=== PATIENT | female | born 1955 | race Caucasian/White ===

== ENCOUNTER 2017-07-17 02:11 | Emergency (ER) | payer MEDICAID ==
[~2017-07-17] VITALS: Ht 170.2 cm; Wt 49.7 kg
[2017-07-17 02:23] VITALS: BP 159/109
[2017-07-17] MEDS: ipratropium/albuterol 3ml nebule NEB ONE (03:15)
[2017-07-17] MEDS ORDERED: ALBU8HFA PO (03:29)
[2017-07-17] MEDS ORDERED: LEVO500T2 PO (03:29)
[2017-07-17] MEDS ORDERED: GUAI473S11 PO (03:29)
== END 2017-07-17 03:41 | disposition home or self-care (01) ==
LOC: ER 02:12
DX: J18.1 Lobar pneumonia, unspecified organism (principal); Z87.891 Personal history of nicotine dependence
CPT/HCPCS: 71045; 94640; 94760; 99283

== ENCOUNTER 2021-01-13 14:22 | Inpatient (IN) | payer MEDICAID ==
[~2021-01-13] VITALS: Ht 170.2 cm; Wt 56.8 kg
[2021-01-13] MEDS ORDERED: ondansetron/PF 4mg/2ml inj IV ONE (14:35)
[2021-01-13] MEDS ORDERED: vancomycin/NS 1 GM ADD-VANTAGE 250 ML IV ONE (14:35)
[2021-01-13] MEDS ORDERED: CefTRIAXone 2gm/D5W 50ml BAG 50 ML IV ONE (14:35)
[2021-01-13] MEDS ORDERED: normal saline 1000ML IV soln IV ONE (14:35)
[2021-01-13] MEDS ORDERED: morphine 4 MG/ML inj SYRINge IV ONE (14:35)
[2021-01-13 15:11] LABS: BASOPHILS # (AUTO) 0.2 X10'3 (0-0.2); BASOPHILS % (AUTO) 1.4 % (0-1); EOSINOPHILS % (AUTO) 0 % (0-6); HEMATOCRIT 41.6 % (35.0-45.0); HEMOGLOBIN 13.4 g/dl (12.0-16.0); LYMPHOCYTES # (AUTO) 0.2 X10'3 (1.1-4.8); LYMPHOCYTES % (AUTO) 1.3 % (21-51); MEAN CORPUSCULAR HEMOGLOBIN 23.8 PG (27.0-31.0); MEAN CORPUSCULAR HGB CONC 32.2 g/dL (33.0-36.5); MEAN CORPUSCULAR VOLUME 74.1 FL (78-98); MEAN PLATELET VOLUME 8.7 FL (7.4-10.4); MONOCYTES # (AUTO) 0.5 X10'3 (0-0.9); MONOCYTES % (AUTO) 3.1 % (2-12); NEUTROPHILS # (AUTO) 15.5 X10'3 (1.8-7.7); NEUTROPHILS % (AUTO) 94.2 % (42-75); PLATELET COUNT 178 X10'3 (140-440); RED BLOOD COUNT 5.62 X10'6 (4.20-5.60); WHITE BLOOD COUNT 16.5 X10'3 (4.5-11.0)
[2021-01-13 15:24] LABS: ALANINE AMINOTRANSFERASE 25 U/L (12-78); ALBUMIN 2.6 G/DL (3.4-5.0); ALBUMIN/GLOBULIN RATIO 0.6 (1.1-1.5); ALKALINE PHOSPHATASE 301 IU/L (46-116); ANION GAP 11 (8-16); ASPARTATE AMINO TRANSFERASE 45 U/L (10-37); BILIRUBIN,TOTAL 2.3 MG/DL (0.1-1.0); BLOOD UREA NITROGEN 27 MG/DL (7-18); BUN/CREATININE RATIO 24.8 (6.6-38.0); CALCIUM 8.4 MG/DL (8.5-10.1); CHLORIDE 99 MMOL/L (99-107); CREATININE 1.09 MG/DL (0.40-0.90); GLUCOSE 75 MG/DL (70-104); MAGNESIUM 1.8 MG/DL (1.5-2.4); SODIUM 139 MMOL/L (135-145); TOTAL CARBON DIOXIDE 29.3 MMOL/L (24-32); TOTAL PROTEIN 7.3 G/DL (6.4-8.2); eGFR 51 ML/MIN
[2021-01-13 15:33] LABS: URINE HCG NEGATIVE (NEG)
[2021-01-13 15:39] LABS: CLARITY,URINE CLOUDY (Clear); COLOR,URINE YELLOW (Yellow); GLUCOSE, URINE NEGATIVE (Neg); KETONES,URINE NEGATIVE (Neg); OCCULT BLOOD,URINE TRACE-INTACT (Neg); PROTEIN,URINE 100 mg/dl (Neg); UA COLLECTION TYPE NON-SPECIFIED
[2021-01-13 15:40] LABS: LEUKOCYTE ESTERASE ,URINE NEGATIVE (Neg); NITRITES, URINE NEGATIVE (Neg)
[2021-01-13 15:43] LABS: HYALINE CASTS 0-3 /LPF (NEGATIVE); MUCUS STRANDS FEW /LPF (Neg); SQUAMOUS EPITHELIAL CELL,UR FEW /LPF (FEW)
[2021-01-13 15:44] LABS: RBC,URINE 0-2 /HPF (0-2); WBC,URINE 0-4 /HPF (0-4)
[2021-01-13 15:45] LABS: AMORPHOUS URATES 2+; BACTERIA,URINE 1+ /HPF (Neg)
[2021-01-13] MEDS ORDERED: potassium Cl 20 mEq SR tablet PO STA (16:07)
[2021-01-13 16:18] LABS: ANISOCYTOSIS 3+; MICROCYTOSIS 1+; PLATELET ESTIMATE NORMAL
[2021-01-13 16:19] LABS: BURR CELLS 1+; SCHISTOCYTES FEW
[2021-01-13] MEDS ORDERED: FURO20TA4 PO (16:36)
[2021-01-13] MEDS ORDERED: POTA10TA PO (16:36)
[2021-01-13] MEDS ORDERED: LEVO50TA8 PO (16:36)
[2021-01-13] MEDS ORDERED: CARV12.545 PO (16:36)
[2021-01-13] MEDS ORDERED: OMEP-50 PO (16:36)
[2021-01-13] MEDS ORDERED: LISI-790 PO (16:36)
[2021-01-13] MEDS ORDERED: ondansetron/PF 4mg/2ml inj IV PRN (16:45)
[2021-01-13] MEDS ORDERED: potassium Cl 40MEQ/1/2NS 520ml 520 ML IV PRN ×2 (16:45)
[2021-01-13] MEDS ORDERED: potassium Cl 20 mEq SR tablet PO PRN (16:45)
[2021-01-13] MEDS ORDERED: albuterol 2.5 MG/3 ML nebule NEB PRN (16:45)
[2021-01-13] MEDS ORDERED: magnesium 4gm in 100ml NS 100 ML IV PRN (16:45)
[2021-01-13] MEDS ORDERED: PERFLUTREN PROTEIN-A MICROSPHR (Optison) 0.22 MG/ML 3ML VIAL IV PRN (16:45)
[2021-01-13] MEDS ORDERED: morphine 2 MG/ML inj. syringe IV PRN (16:45)
[2021-01-13] MEDS ORDERED: magnesium 2GM in 50ml NS 50 ML IV PRN (16:45)
[2021-01-13] MEDS ORDERED: mag hydrox/Alum hydrox/simeth 30ml oral suspension PO PRN (16:45)
[2021-01-13] MEDS ORDERED: magnesium hydroxide 30ml (MOM) UD suspension PO PRN (16:45)
[2021-01-13] MEDS: nicotine 14mg patch - 24hr TD SCH (17:12)
[2021-01-13] MEDS: piperacillin/tazo 4.5gm/100ml 100 ML IV SCH (18:11)
--- NOTE | 2021-01-13 19:45 | NUR ---
Patient in room ED 14. I have received report from JENNIFER GRIFFIN in ER and had the opportunity to ask questions and assume patient care. Patient still in ER .
[2021-01-13 20:00] VITALS: BP 117/74
[2021-01-13] MEDS: K and/or MAG REPLACEMENT MC SCH (20:00)
--- NOTE | 2021-01-13 20:02 | NUR ---
PATIENT ARRIVED ON UNIT
[2021-01-13] MEDS: morphine 2 MG/ML inj. syringe IV PRN (20:30)
[2021-01-13] MEDS: carVEDilol 12.5mg tablet PO SCH (20:31)
[2021-01-13] MEDS: docusate sod 100mg capsule PO SCH (20:31)
[2021-01-13] MEDS: lisinopril 5mg tablet PO SCH (20:31)
[2021-01-14] VITALS: BP 107/70
[2021-01-14] MEDS: heparin, porcine 5000 units/ml vial SQ SCH ×4 (00:04→23:55)
[2021-01-14] MEDS: morphine 2 MG/ML inj. syringe IV PRN ×4 (05:31→20:34)
[2021-01-14 06:13] LABS: BASOPHILS % (AUTO) 0.2 % (0-1); EOSINOPHILS % (AUTO) 0.1 % (0-6); HEMATOCRIT 37.9 % (35.0-45.0); HEMOGLOBIN 12.1 g/dl (12.0-16.0); LYMPHOCYTES # (AUTO) 0.3 X10'3 (1.1-4.8); MEAN CORPUSCULAR HEMOGLOBIN 23.8 PG (27.0-31.0); MEAN CORPUSCULAR VOLUME 74.4 FL (78-98); MEAN PLATELET VOLUME 8.8 FL (7.4-10.4); MONOCYTES # (AUTO) 0.4 X10'3 (0-0.9); MONOCYTES % (AUTO) 3.2 % (2-12); NEUTROPHILS # (AUTO) 13.4 X10'3 (1.8-7.7); NEUTROPHILS % (AUTO) 94.5 % (42-75); PLATELET COUNT 170 X10'3 (140-440); RED CELL DISTRIBUTION WIDTH 20.6 % (11.5-14.5); WHITE BLOOD COUNT 14.1 X10'3 (4.5-11.0)
[2021-01-14 06:29] LABS: ALANINE AMINOTRANSFERASE 19 U/L (12-78); ALBUMIN 2.2 G/DL (3.4-5.0); ALBUMIN/GLOBULIN RATIO 0.5 (1.1-1.5); ALKALINE PHOSPHATASE 253 IU/L (46-116); ANION GAP 8 (8-16); ASPARTATE AMINO TRANSFERASE 30 U/L (10-37); BILIRUBIN,TOTAL 1.7 MG/DL (0.1-1.0); BLOOD UREA NITROGEN 28 MG/DL (7-18); BUN/CREATININE RATIO 23.1 (6.6-38.0); CHLORIDE 100 MMOL/L (99-107); CREATININE 1.21 MG/DL (0.40-0.90); GLUCOSE 90 MG/DL (70-104); MAGNESIUM 1.8 MG/DL (1.5-2.4); POTASSIUM 4.4 MMOL/L (3.5-5.1); SODIUM 135 MMOL/L (135-145); TOTAL CARBON DIOXIDE 26.8 MMOL/L (24-32); TOTAL PROTEIN 6.7 G/DL (6.4-8.2); eGFR 45 ML/MIN
[2021-01-14] MEDS: levoTHYROXINE 25mcg tablet PO SCH (06:30)
--- NOTE | 2021-01-14 06:33 | NUR ---
Problems reprioritized. Patient report given, questions answered & plan of care reviewed with BERNARDO GRIFFIN.
[2021-01-14 07:46] VITALS: BP 117/78
[2021-01-14] MEDS: K and/or MAG REPLACEMENT MC SCH ×2 (08:00→20:00)
[2021-01-14] MEDS: pantoprazole 40mg Tablet.DR PO SCH (08:49)
[2021-01-14] MEDS: furosemide 20 MG/2 ML vial IV SCH (08:49)
[2021-01-14] MEDS: docusate sod 100mg capsule PO SCH ×2 (08:49→20:41)
[2021-01-14] MEDS: carVEDilol 12.5mg tablet PO SCH ×2 (08:50→20:37)
[2021-01-14] MEDS: lisinopril 5mg tablet PO SCH ×2 (08:50→20:40)
[2021-01-14] MEDS: piperacillin/tazo 4.5gm/100ml 100 ML IV SCH ×3 (08:50→23:52)
[2021-01-14] MEDS: nicotine 14mg patch - 24hr TD SCH (08:51)
--- NOTE | 2021-01-14 09:01 | NUR ---
Requested assistance from aid to shower pt by 2pm.
[2021-01-14] MEDS ORDERED: FLU VACC QS2021-22(6MOS UP)/PF 60 MCG/0.5 ML SYRINGE IM ONE (10:00)
--- NOTE | 2021-01-14 10:50 | NUR ---
PAGER ID: [phone] MESSAGE: Denise Yepez 360B tetanus shot? she says she hasn't had one. She is not sure about her covid vaccine. Are we requiring neg COVID swab or vaccine for just visitors or pts too? no tox screen either. Mel [phone]
--- NOTE | 2021-01-14 11:27 | NUR ---
Initial: Pt admitted w/ RLE cellulitis and sepsis per EMR. Pt currently on Heart Healthy diet and consumed 100% of first meal. [facility] 01/12 receiving routine colace. No nutrition intervention implemented at this time, will continue to monitor PO trends and make recommendations as appropriate. Recs: 1. Continue Heart Healthy diet as tolerated 2. Monitor need for ONS pending further PO 3. Bowel care per rx 4. Scaled wt this admit, weekly wt thereafter Addendum: 01/14/21 at [address] Amended: Links added.
[2021-01-14 12:34] VITALS: BP 131/79
[2021-01-14] MEDS ORDERED: vancomycin/NS 1 GM ADD-VANTAGE 250 ML IV SCH (16:00)
--- NOTE | 2021-01-14 16:45 | NUR ---
All medications scanned but did not save.
[2021-01-14 18:00] VITALS: BP 143/62
--- NOTE | 2021-01-14 18:10 | NUR ---
Gave report to Ada GRIFFIN.
--- NOTE | 2021-01-14 18:15 | NUR ---
Patient in room [facility] 360. I have received report from Marlena Logan and had the opportunity to ask questions and assume patient care.
[2021-01-14] MEDS: lactobacillus rhamnosus 10,000 MMU CELLS/CAPSULE PO SCH (20:37)
[2021-01-14] MEDS: ipratropium/albuterol 3ml nebule NEB PRN (23:57)
[2021-01-15] VITALS: BP 132/71
--- NOTE | 2021-01-15 06:25 | NUR ---
Patient in room [facility] 360. I have received report from Ada GRIFFIN and had the opportunity to ask questions and assume patient care.
[2021-01-15 06:27] LABS: BASOPHILS % (AUTO) 0.2 % (0-1); EOSINOPHILS % (AUTO) 0.2 % (0-6); HEMATOCRIT 33.6 % (35.0-45.0); HEMOGLOBIN 10.8 g/dl (12.0-16.0); LYMPHOCYTES # (AUTO) 0.7 X10'3 (1.1-4.8); MEAN CORPUSCULAR HEMOGLOBIN 23.5 PG (27.0-31.0); MEAN CORPUSCULAR HGB CONC 32.1 g/dL (33.0-36.5); MEAN CORPUSCULAR VOLUME 73.2 FL (78-98); MEAN PLATELET VOLUME 8.9 FL (7.4-10.4); MONOCYTES # (AUTO) 0.6 X10'3 (0-0.9); MONOCYTES % (AUTO) 4.2 % (2-12); NEUTROPHILS # (AUTO) 12.8 X10'3 (1.8-7.7); NEUTROPHILS % (AUTO) 90.4 % (42-75); PLATELET COUNT 158 X10'3 (140-440); RED CELL DISTRIBUTION WIDTH 20.1 % (11.5-14.5); WHITE BLOOD COUNT 14.2 X10'3 (4.5-11.0)
[2021-01-15] MEDS: levoTHYROXINE 25mcg tablet PO SCH (06:50)
[2021-01-15 06:53] LABS: ALANINE AMINOTRANSFERASE 15 U/L (12-78); ALBUMIN 1.8 G/DL (3.4-5.0); ALBUMIN/GLOBULIN RATIO 0.5 (1.1-1.5); ALKALINE PHOSPHATASE 227 IU/L (46-116); ANION GAP 7 (8-16); ASPARTATE AMINO TRANSFERASE 24 U/L (10-37); BILIRUBIN,TOTAL 1.6 MG/DL (0.1-1.0); BLOOD UREA NITROGEN 27 MG/DL (7-18); BUN/CREATININE RATIO 23.1 (6.6-38.0); CALCIUM 7.8 MG/DL (8.5-10.1); CHLORIDE 102 MMOL/L (99-107); CREATININE 1.17 MG/DL (0.40-0.90); GLUCOSE 118 MG/DL (70-104); MAGNESIUM 1.7 MG/DL (1.5-2.4); POTASSIUM 3.2 MMOL/L (3.5-5.1); SODIUM 136 MMOL/L (135-145); TOTAL CARBON DIOXIDE 26.7 MMOL/L (24-32); TOTAL PROTEIN 5.7 G/DL (6.4-8.2); eGFR 47 ML/MIN
--- NOTE | 2021-01-15 06:53 | NUR ---
Problems reprioritized. Patient report given, questions answered & plan of care reviewed with Lynda GRIFFIN.
[2021-01-15] MEDS: pantoprazole 40mg Tablet.DR PO SCH (07:48)
[2021-01-15] MEDS: carVEDilol 12.5mg tablet PO SCH ×2 (07:48→20:17)
[2021-01-15] MEDS: lactobacillus rhamnosus 10,000 MMU CELLS/CAPSULE PO SCH ×2 (07:48→20:11)
[2021-01-15] MEDS: docusate sod 100mg capsule PO SCH ×2 (07:48→20:10)
[2021-01-15] MEDS: lisinopril 5mg tablet PO SCH ×2 (07:49→20:17)
[2021-01-15] MEDS: furosemide 20 MG/2 ML vial IV SCH (07:49)
[2021-01-15] MEDS: heparin, porcine 5000 units/ml vial SQ SCH ×2 (07:49→16:00)
[2021-01-15] MEDS: morphine 2 MG/ML inj. syringe IV PRN ×3 (07:53→21:57)
[2021-01-15] MEDS: nicotine 14mg patch - 24hr TD SCH (07:58)
[2021-01-15 08:00] VITALS: BP 130/82
[2021-01-15] MEDS: K and/or MAG REPLACEMENT MC SCH ×2 (08:00→21:58)
[2021-01-15] MEDS: piperacillin/tazo 4.5gm/100ml 100 ML IV SCH (08:04)
[2021-01-15] MEDS ORDERED: FLU VACC QS2021-22(6MOS UP)/PF 60 MCG/0.5 ML SYRINGE IM ONE (10:00)
[2021-01-15] MEDS: potassium Cl 20 mEq SR tablet PO PRN ×3 (10:51→21:57)
[2021-01-15 11:00] VITALS: BP 131/79
[2021-01-15] MEDS ORDERED: TETanus/Pertussis (Acell)/Diphther VAC/PF (Tdap-Adult) 0.5ml syringe IMVAC ONE (11:00)
[2021-01-15] MEDS: ceFAZolin/D5W- 1GM premix 50 ML IV SCH ×2 (13:48→16:00)
[2021-01-15] MEDS: linezolid 600mg tablet PO SCH ×2 (14:07→20:12)
--- NOTE | 2021-01-15 14:32 | NUR ---
Malnutrition screen: Current wt not scaled and no recent wt hx, though last scaled wt from 2018 shows 49kg. Pt has been eating mostly 100% of meals since admit, appears well developed and well nourished per ED note. R leg 2+ edema though likely r/t cellulitis. At this time pt does not meet minimum criteria for malnutrition, will continue to monitor. Addendum: 01/15/21 at [address] Amended: Links added.
--- NOTE | 2021-01-15 16:07 | NUR ---
per pharmacist I non admin 1600 dose due to morning dose being given at 1300 because i was unable to obtain from pharmacy. Pharmacist did not want to change RX number and said dose would be given tomorrow.
--- NOTE | 2021-01-15 16:27 | NUR ---
Page Sent PAGER ID: [phone] MESSAGE: 360 b Lucho, cristal pt have an order for some PO [place], she has no known allergies. Pt only has morphine IV for pain.
[2021-01-15 18:00] VITALS: BP 138/83
--- NOTE | 2021-01-15 18:06 | NUR ---
RECOMMEND: 1. Daily bathing with no rinse skin cleanser. 2. Cream/Lotion to be applied to skin after bathing. 3. Niecy care Q shift and prn soiling followed by with Barrier Cream. 4. Turn patient Q 1-2 hrs and reposition with pillows. 5. Float heels to offload pressure. 6. Eucerin Plus lotion to RLE. BID
--- NOTE | 2021-01-15 18:27 | NUR ---
Problems reprioritized. Patient report given, questions answered & plan of care reviewed with Sherin GRIFFIN.
--- NOTE | 2021-01-15 18:40 | NUR ---
Patient in room [facility] 360. I have received report from Lynda GRIFFIN and had the opportunity to ask questions and assume patient care.
--- NOTE | 2021-01-15 20:00 | NUR ---
Logistics Team Lead from [employer] just arrived and in with patient explaining how to wear/use.
[2021-01-15] MEDS: HYDROcodone/acetaminophen 5mg/325mg tablet PO PRN (20:14)
[2021-01-16] VITALS: BP 113/71
[2021-01-16] MEDS: mineral oil/petrolatum, white cream 113gm jar TP SCH ×3 (00:38→23:04)
[2021-01-16] MEDS: ceFAZolin/D5W- 1GM premix 50 ML IV SCH ×4 (00:44→23:06)
[2021-01-16] MEDS: heparin, porcine 5000 units/ml vial SQ SCH ×4 (00:45→23:06)
[2021-01-16] MEDS: levoTHYROXINE 25mcg tablet PO SCH (05:32)
[2021-01-16] MEDS: HYDROcodone/acetaminophen 5mg/325mg tablet PO PRN (05:38)
--- NOTE | 2021-01-16 06:00 | NUR ---
Problems reprioritized. Patient report given, questions answered & plan of care reviewed with Lynda GRIFFIN.
[2021-01-16 06:13] LABS: BASOPHILS % (AUTO) 0.3 % (0-1); EOSINOPHILS # (AUTO) 0.1 X10'3 (0-0.9); EOSINOPHILS % (AUTO) 0.7 % (0-6); HEMATOCRIT 36.8 % (35.0-45.0); HEMOGLOBIN 11.4 g/dl (12.0-16.0); LYMPHOCYTES # (AUTO) 0.6 X10'3 (1.1-4.8); LYMPHOCYTES % (AUTO) 5.3 % (21-51); MEAN CORPUSCULAR HEMOGLOBIN 23.1 PG (27.0-31.0); MEAN CORPUSCULAR VOLUME 74.8 FL (78-98); MEAN PLATELET VOLUME 8.7 FL (7.4-10.4); MONOCYTES # (AUTO) 0.8 X10'3 (0-0.9); MONOCYTES % (AUTO) 6.9 % (2-12); NEUTROPHILS # (AUTO) 10.4 X10'3 (1.8-7.7); NEUTROPHILS % (AUTO) 86.8 % (42-75); PLATELET COUNT 175 X10'3 (140-440); RED BLOOD COUNT 4.92 X10'6 (4.20-5.60); RED CELL DISTRIBUTION WIDTH 20.2 % (11.5-14.5)
--- NOTE | 2021-01-16 06:26 | NUR ---
Patient in room [facility] 360. I have received report from Ada palomino and had the opportunity to ask questions and assume patient care.
[2021-01-16 07:00] VITALS: BP 126/78
[2021-01-16 07:06] LABS: ALANINE AMINOTRANSFERASE 20 U/L (12-78); ALBUMIN 1.8 G/DL (3.4-5.0); ALBUMIN/GLOBULIN RATIO 0.4 (1.1-1.5); ALKALINE PHOSPHATASE 263 IU/L (46-116); ANION GAP 8 (8-16); ASPARTATE AMINO TRANSFERASE 25 U/L (10-37); BILIRUBIN,TOTAL 1.5 MG/DL (0.1-1.0); BLOOD UREA NITROGEN 21 MG/DL (7-18); BUN/CREATININE RATIO 21.9 (6.6-38.0); CHLORIDE 99 MMOL/L (99-107); CREATININE 0.96 MG/DL (0.40-0.90); GLUCOSE 82 MG/DL (70-104); MAGNESIUM 1.8 MG/DL (1.5-2.4); POTASSIUM 3.7 MMOL/L (3.5-5.1); SODIUM 137 MMOL/L (135-145); TOTAL CARBON DIOXIDE 30.5 MMOL/L (24-32); TOTAL PROTEIN 6.4 G/DL (6.4-8.2); eGFR 59 ML/MIN
[2021-01-16 07:27] LABS: ANISOCYTOSIS 3+; MICROCYTOSIS 1+; PLATELET ESTIMATE NORMAL; TARGET CELLS FEW
[2021-01-16] MEDS: nicotine 14mg patch - 24hr TD SCH (07:28)
[2021-01-16] MEDS: lactobacillus rhamnosus 10,000 MMU CELLS/CAPSULE PO SCH ×2 (07:29→19:44)
[2021-01-16] MEDS: carVEDilol 12.5mg tablet PO SCH ×2 (07:29→19:47)
[2021-01-16] MEDS: linezolid 600mg tablet PO SCH ×2 (07:29→21:03)
[2021-01-16] MEDS: docusate sod 100mg capsule PO SCH ×2 (07:29→19:44)
[2021-01-16] MEDS: pantoprazole 40mg Tablet.DR PO SCH (07:29)
[2021-01-16] MEDS: furosemide 20 MG/2 ML vial IV SCH (07:30)
[2021-01-16] MEDS: lisinopril 5mg tablet PO SCH ×2 (07:30→19:47)
[2021-01-16] MEDS: K and/or MAG REPLACEMENT MC SCH ×2 (08:00→20:00)
[2021-01-16] MEDS: morphine 2 MG/ML inj. syringe IV PRN (08:05)
--- NOTE | 2021-01-16 08:47 | NUR ---
Page Sent PAGER ID: [phone] MESSAGE: 360 b Lucho, pt only has morphine IV for pain and a [place] 5. do you want some Percocet or add [place] 10? [place] 5 doesn't seem to manage it. jase [id number]
[2021-01-16 11:00] VITALS: BP 113/62
--- NOTE | 2021-01-16 12:05 | NUR ---
Problems reprioritized. Patient report given, questions answered & plan of care reviewed with Leanne GRIFFIN.
[2021-01-16] MEDS ORDERED: iohexol 300mg/ml 100ml inj. ONE (12:17)
--- NOTE | 2021-01-16 13:20 | NUR ---
Patient in room [facility] 360. I have received report from Kathy GRIFFIN and had the opportunity to ask questions and assume patient care.
--- NOTE | 2021-01-16 13:39 | NUR ---
Attempted low tyramine diet education multiple times though pt unavailable. Will f/u again at later date. Addendum: 01/16/21 at [address] Amended: Links added.
--- NOTE | 2021-01-16 14:02 | NUR ---
pt was transferred to U, I called report to liliam palomino. all of the pts belongings are with pt and any valuables are in safe. Pt was stable for transfer.
--- NOTE | 2021-01-16 15:15 | NUR ---
Patient arrived to floor and was oriented to room and call light. Patient arrived wearing life vest. vitals are stable . Needs met. Patient in no acute distress. Patient alert, oriented, and appropriate. C/O pain in RLE. Tele monitoring initiated per MD order.
[2021-01-16 15:21] VITALS: BP 133/77
[2021-01-16] MEDS: oxyCODONE/APAP 5-325mg tablet PO PRN ×2 (16:13→23:17)
--- NOTE | 2021-01-16 17:04 | NUR ---
Student documentation: I have reviewed and agree with all interventions, assessments performed and [facility] Student Medication Administration: For this medication-pass time frame, all medication were reviewed, dispensed, administered and documented per hospital policy [facility].
[2021-01-16 18:00] VITALS: BP 120/73
[2021-01-16] MEDS: furosemide 40mg/4ml inj IV SCH (19:44)
[2021-01-16 22:00] VITALS: BP 105/62
[2021-01-17 02:00] VITALS: BP 124/72
[2021-01-17] MEDS: levoTHYROXINE 25mcg tablet PO SCH (05:40)
--- NOTE | 2021-01-17 06:09 | NUR ---
Problems reprioritized. Patient report given, questions answered & plan of care reviewed with GABY Palmer.
[2021-01-17] MEDS: oxyCODONE/APAP 5-325mg tablet PO PRN ×3 (06:12→21:59)
[2021-01-17 07:00] VITALS: BP 121/72
--- NOTE | 2021-01-17 07:20 | NUR ---
Patient in room PCU 3016. I have received report from Ramona GRIFFIN and had the opportunity to ask questions and assume patient care.
[2021-01-17] MEDS: furosemide 40mg/4ml inj IV SCH ×2 (07:38→19:56)
[2021-01-17] MEDS: nicotine 14mg patch - 24hr TD SCH (07:38)
[2021-01-17] MEDS: ceFAZolin/D5W- 1GM premix 50 ML IV SCH ×3 (07:38→23:50)
[2021-01-17] MEDS: metolazone 2.5mg tablet PO SCH (07:39)
[2021-01-17] MEDS: docusate sod 100mg capsule PO SCH ×2 (07:39→19:55)
[2021-01-17] MEDS: pantoprazole 40mg Tablet.DR PO SCH (07:39)
[2021-01-17] MEDS: lactobacillus rhamnosus 10,000 MMU CELLS/CAPSULE PO SCH ×2 (07:39→19:54)
[2021-01-17] MEDS: carVEDilol 12.5mg tablet PO SCH ×2 (07:39→19:55)
[2021-01-17] MEDS: lisinopril 5mg tablet PO SCH ×2 (07:39→19:56)
[2021-01-17] MEDS: mineral oil/petrolatum, white cream 113gm jar TP SCH ×2 (07:40→19:58)
[2021-01-17] MEDS: heparin, porcine 5000 units/ml vial SQ SCH ×3 (07:40→23:51)
[2021-01-17] MEDS: linezolid 600mg tablet PO SCH ×2 (07:40→19:58)
[2021-01-17] MEDS: K and/or MAG REPLACEMENT MC SCH ×2 (08:00→20:00)
[2021-01-17 08:21] LABS: BASOPHILS % (AUTO) 0.3 % (0-1); EOSINOPHILS # (AUTO) 0.1 X10'3 (0-0.9); EOSINOPHILS % (AUTO) 0.6 % (0-6); HEMATOCRIT 35.4 % (35.0-45.0); HEMOGLOBIN 11.3 g/dl (12.0-16.0); LYMPHOCYTES # (AUTO) 0.8 X10'3 (1.1-4.8); LYMPHOCYTES % (AUTO) 5.5 % (21-51); MEAN CORPUSCULAR HEMOGLOBIN 23.4 PG (27.0-31.0); MEAN CORPUSCULAR VOLUME 73.3 FL (78-98); MEAN PLATELET VOLUME 8.5 FL (7.4-10.4); MONOCYTES % (AUTO) 7.1 % (2-12); NEUTROPHILS # (AUTO) 12.6 X10'3 (1.8-7.7); NEUTROPHILS % (AUTO) 86.5 % (42-75); PLATELET COUNT 215 X10'3 (140-440); RED BLOOD COUNT 4.83 X10'6 (4.20-5.60); RED CELL DISTRIBUTION WIDTH 20.7 % (11.5-14.5); WHITE BLOOD COUNT 14.6 X10'3 (4.5-11.0)
[2021-01-17 08:33] LABS: ALANINE AMINOTRANSFERASE 14 U/L (12-78); ALBUMIN 1.8 G/DL (3.4-5.0); ALBUMIN/GLOBULIN RATIO 0.4 (1.1-1.5); ALKALINE PHOSPHATASE 313 IU/L (46-116); ANION GAP 6 (8-16); ASPARTATE AMINO TRANSFERASE 31 U/L (10-37); BILIRUBIN,TOTAL 1.3 MG/DL (0.1-1.0); BLOOD UREA NITROGEN 18 MG/DL (7-18); BUN/CREATININE RATIO 20.7 (6.6-38.0); CALCIUM 7.8 MG/DL (8.5-10.1); CHLORIDE 100 MMOL/L (99-107); CREATININE 0.87 MG/DL (0.40-0.90); GLUCOSE 81 MG/DL (70-104); MAGNESIUM 1.9 MG/DL (1.5-2.4); POTASSIUM 4.2 MMOL/L (3.5-5.1); SODIUM 135 MMOL/L (135-145); TOTAL CARBON DIOXIDE 28.7 MMOL/L (24-32); TOTAL PROTEIN 6.5 G/DL (6.4-8.2); eGFR 66 ML/MIN
[2021-01-17 10:26] LABS: ANISOCYTOSIS 3+; HYPOCHROMASIA 1+; MICROCYTOSIS 1+; PLATELET ESTIMATE NORMAL; TOTAL CELLS COUNTED 100
[2021-01-17 11:00] VITALS: BP 116/67
--- NOTE | 2021-01-17 11:13 | NUR ---
Reassessment: Pt continues to eat well on Heart Healthy diet eating mostly 75-100% of meals meeting needs. [facility] Provided Pt w/ written and verbal low tyramine diet education w/ RD contact info. Pt receptive of information. No nutrition intervention implemented at this time, will continue to monitor PO trends and make recommendations as appropriate. Recs: 1. Continue Heart Healthy diet as tolerated 2. Monitor need for ONS pending further PO 3. Bowel care per rx 4. Scaled wt this admit, weekly wt thereafter Addendum: 01/17/21 at [address] Amended: Links added.
[2021-01-17 15:00] VITALS: BP 111/92
[2021-01-17 18:00] VITALS: BP 129/70
--- NOTE | 2021-01-17 18:21 | NUR ---
Problems reprioritized. Patient report given, questions answered & plan of care reviewed with Ramona GRIFFIN. Patient eating dinner in no acute distress. Life vest on with battery charged and has been on patient all shift.
[2021-01-17 22:00] VITALS: BP 105/65
[2021-01-18 06:00] VITALS: BP 150/89
--- NOTE | 2021-01-18 06:39 | NUR ---
Problems reprioritized. Patient report given, questions answered & plan of care reviewed with GABY Anaya.
[2021-01-18 07:43] LABS: BASOPHILS # (AUTO) 0.1 X10'3 (0-0.2); BASOPHILS % (AUTO) 0.5 % (0-1); EOSINOPHILS # (AUTO) 0.1 X10'3 (0-0.9); EOSINOPHILS % (AUTO) 0.9 % (0-6); HEMATOCRIT 38.3 % (35.0-45.0); HEMOGLOBIN 12.4 g/dl (12.0-16.0); LYMPHOCYTES # (AUTO) 1.1 X10'3 (1.1-4.8); LYMPHOCYTES % (AUTO) 7.4 % (21-51); MEAN CORPUSCULAR HEMOGLOBIN 23.6 PG (27.0-31.0); MEAN CORPUSCULAR HGB CONC 32.4 g/dL (33.0-36.5); MEAN CORPUSCULAR VOLUME 72.9 FL (78-98); MEAN PLATELET VOLUME 8.2 FL (7.4-10.4); MONOCYTES # (AUTO) 0.9 X10'3 (0-0.9); NEUTROPHILS # (AUTO) 12.7 X10'3 (1.8-7.7); NEUTROPHILS % (AUTO) 85.2 % (42-75); PLATELET COUNT 300 X10'3 (140-440); RED BLOOD COUNT 5.25 X10'6 (4.20-5.60); RED CELL DISTRIBUTION WIDTH 20.1 % (11.5-14.5); WHITE BLOOD COUNT 14.9 X10'3 (4.5-11.0)
[2021-01-18 07:45] LABS: ALANINE AMINOTRANSFERASE 17 U/L (12-78); ALBUMIN 1.8 G/DL (3.4-5.0); ALBUMIN/GLOBULIN RATIO 0.3 (1.1-1.5); ALKALINE PHOSPHATASE 275 IU/L (46-116); ANION GAP 8 (8-16); ASPARTATE AMINO TRANSFERASE 36 U/L (10-37); BILIRUBIN,TOTAL 1.2 MG/DL (0.1-1.0); BLOOD UREA NITROGEN 23 MG/DL (7-18); BUN/CREATININE RATIO 22.3 (6.6-38.0); CALCIUM 8.2 MG/DL (8.5-10.1); CHLORIDE 96 MMOL/L (99-107); CREATININE 1.03 MG/DL (0.40-0.90); GLUCOSE 97 MG/DL (70-104); MAGNESIUM 1.9 MG/DL (1.5-2.4); POTASSIUM 3.8 MMOL/L (3.5-5.1); SODIUM 136 MMOL/L (135-145); TOTAL CARBON DIOXIDE 31.8 MMOL/L (24-32); TOTAL PROTEIN 7.3 G/DL (6.4-8.2); eGFR 54 ML/MIN
[2021-01-18] MEDS: K and/or MAG REPLACEMENT MC SCH ×2 (08:00→20:00)
[2021-01-18] MEDS: oxyCODONE/APAP 5-325mg tablet PO PRN ×3 (08:02→23:16)
[2021-01-18] MEDS: docusate sod 100mg capsule PO SCH ×2 (08:02→19:54)
[2021-01-18] MEDS: lactobacillus rhamnosus 10,000 MMU CELLS/CAPSULE PO SCH ×2 (08:02→19:57)
[2021-01-18] MEDS: linezolid 600mg tablet PO SCH ×2 (08:02→19:57)
[2021-01-18] MEDS: pantoprazole 40mg Tablet.DR PO SCH (08:02)
[2021-01-18] MEDS: carVEDilol 12.5mg tablet PO SCH ×2 (08:02→19:55)
[2021-01-18] MEDS: lisinopril 5mg tablet PO SCH ×2 (08:03→19:57)
[2021-01-18] MEDS: metolazone 2.5mg tablet PO SCH (08:03)
[2021-01-18] MEDS: heparin, porcine 5000 units/ml vial SQ SCH ×3 (08:04→23:16)
[2021-01-18] MEDS: ceFAZolin/D5W- 1GM premix 50 ML IV SCH ×3 (08:04→23:16)
[2021-01-18] MEDS: furosemide 40mg/4ml inj IV SCH ×2 (08:04→19:54)
[2021-01-18] MEDS: nicotine 14mg patch - 24hr TD SCH (08:06)
[2021-01-18] MEDS: levoTHYROXINE 25mcg tablet PO SCH (08:09)
[2021-01-18] MEDS: mineral oil/petrolatum, white cream 113gm jar TP SCH ×2 (08:09→19:58)
[2021-01-18 10:39] LABS: LARGE PLATELETS FEW; PLATELET ESTIMATE NORMAL
[2021-01-18 10:40] LABS: ANISOCYTOSIS 3+; MICROCYTOSIS 1+; TARGET CELLS 1+
[2021-01-18 11:00] VITALS: BP 97/56
[2021-01-18 15:00] VITALS: BP 129/77
[2021-01-18 18:00] VITALS: BP 119/66
--- NOTE | 2021-01-18 18:40 | NUR ---
Problems reprioritized. Patient report given, questions answered & plan of care reviewed with Maritza GRIFFIN.
[2021-01-18 22:00] VITALS: BP 106/66
[2021-01-19 02:00] VITALS: BP 112/62
[2021-01-19 06:00] VITALS: BP 104/77
[2021-01-19] MEDS: oxyCODONE/APAP 5-325mg tablet PO PRN ×3 (06:22→22:28)
[2021-01-19] MEDS: levoTHYROXINE 25mcg tablet PO SCH (06:23)
[2021-01-19] MEDS: ceFAZolin/D5W- 1GM premix 50 ML IV SCH ×2 (07:40→16:14)
[2021-01-19] MEDS: metolazone 2.5mg tablet PO SCH (07:41)
[2021-01-19] MEDS: lactobacillus rhamnosus 10,000 MMU CELLS/CAPSULE PO SCH ×2 (07:41→21:19)
[2021-01-19] MEDS: nicotine 14mg patch - 24hr TD SCH (07:41)
[2021-01-19] MEDS: pantoprazole 40mg Tablet.DR PO SCH (07:41)
[2021-01-19] MEDS: docusate sod 100mg capsule PO SCH ×2 (07:41→21:19)
[2021-01-19] MEDS: linezolid 600mg tablet PO SCH ×2 (07:41→21:20)
[2021-01-19] MEDS: carVEDilol 12.5mg tablet PO SCH ×2 (07:41→21:20)
[2021-01-19] MEDS: lisinopril 5mg tablet PO SCH ×2 (07:42→21:19)
[2021-01-19] MEDS: heparin, porcine 5000 units/ml vial SQ SCH ×2 (07:42→16:11)
[2021-01-19] MEDS: furosemide 40mg/4ml inj IV SCH ×2 (07:42→21:20)
[2021-01-19] MEDS: mineral oil/petrolatum, white cream 113gm jar TP SCH ×2 (07:53→21:22)
[2021-01-19] MEDS: K and/or MAG REPLACEMENT MC SCH ×2 (08:00→20:00)
[2021-01-19 11:00] VITALS: BP 92/64
[2021-01-19 15:00] VITALS: BP 138/74
[2021-01-19 18:00] VITALS: BP 137/86
--- NOTE | 2021-01-19 18:33 | NUR ---
Problems reprioritized. Patient report given, questions answered & plan of care reviewed with Dilcia GRIFFIN.
[2021-01-19] MEDS: acetaminophen 325mg tablet PO PRN (21:20)
[2021-01-19] MEDS: ipratropium/albuterol 3ml nebule NEB PRN (21:45)
[2021-01-19 22:00] VITALS: BP 130/70
[2021-01-20] MEDS: heparin, porcine 5000 units/ml vial SQ SCH ×3 (00:37→15:45)
[2021-01-20 02:00] VITALS: BP 139/64
[2021-01-20] MEDS: ceFAZolin/D5W- 1GM premix 50 ML IV SCH ×3 (02:09→15:45)
[2021-01-20] MEDS: levoTHYROXINE 25mcg tablet PO SCH (05:50)
[2021-01-20 06:00] VITALS: BP 126/76
--- NOTE | 2021-01-20 06:44 | NUR ---
Problems reprioritized. Patient report given, questions answered & plan of care reviewed with Jaclyn GRIFFIN .
[2021-01-20] MEDS: lactobacillus rhamnosus 10,000 MMU CELLS/CAPSULE PO SCH ×2 (07:50→19:49)
[2021-01-20] MEDS: linezolid 600mg tablet PO SCH ×2 (07:51→19:50)
[2021-01-20] MEDS: metolazone 2.5mg tablet PO SCH (07:51)
[2021-01-20] MEDS: carVEDilol 12.5mg tablet PO SCH ×2 (07:51→19:49)
[2021-01-20] MEDS: lisinopril 5mg tablet PO SCH ×2 (07:52→19:49)
[2021-01-20] MEDS: furosemide 40mg/4ml inj IV SCH ×2 (07:52→19:50)
[2021-01-20] MEDS: nicotine 14mg patch - 24hr TD SCH (07:55)
[2021-01-20] MEDS: docusate sod 100mg capsule PO SCH ×2 (07:59→19:49)
[2021-01-20] MEDS: pantoprazole 40mg Tablet.DR PO SCH (07:59)
[2021-01-20] MEDS: oxyCODONE/APAP 5-325mg tablet PO PRN ×2 (08:00→20:01)
[2021-01-20] MEDS: K and/or MAG REPLACEMENT MC SCH ×2 (08:00→20:00)
[2021-01-20] MEDS: mineral oil/petrolatum, white cream 113gm jar TP SCH ×2 (08:04→19:51)
[2021-01-20 10:09] LABS: BASOPHILS # (AUTO) 0.1 X10'3 (0-0.2); EOSINOPHILS # (AUTO) 0.1 X10'3 (0-0.9); HEMATOCRIT 38.9 % (35.0-45.0); HEMOGLOBIN 12.4 g/dl (12.0-16.0); LYMPHOCYTES # (AUTO) 0.8 X10'3 (1.1-4.8); LYMPHOCYTES % (AUTO) 7.1 % (21-51); MEAN CORPUSCULAR HEMOGLOBIN 23.6 PG (27.0-31.0); MEAN CORPUSCULAR VOLUME 73.8 FL (78-98); MONOCYTES # (AUTO) 0.5 X10'3 (0-0.9); MONOCYTES % (AUTO) 4.3 % (2-12); NEUTROPHILS # (AUTO) 10.2 X10'3 (1.8-7.7); NEUTROPHILS % (AUTO) 86.6 % (42-75); PLATELET COUNT 401 X10'3 (140-440); RED BLOOD COUNT 5.28 X10'6 (4.20-5.60); RED CELL DISTRIBUTION WIDTH 20.5 % (11.5-14.5); WHITE BLOOD COUNT 11.7 X10'3 (4.5-11.0)
[2021-01-20 10:26] LABS: ANISOCYTOSIS 3+; MICROCYTOSIS 1+; PLATELET ESTIMATE NORMAL
[2021-01-20 10:27] LABS: TARGET CELLS FEW
[2021-01-20 10:37] LABS: ALANINE AMINOTRANSFERASE 22 U/L (12-78); ALBUMIN 2.1 G/DL (3.4-5.0); ALBUMIN/GLOBULIN RATIO 0.4 (1.1-1.5); ALKALINE PHOSPHATASE 330 IU/L (46-116); ANION GAP 5 (8-16); ASPARTATE AMINO TRANSFERASE 39 U/L (10-37); BILIRUBIN,TOTAL 0.8 MG/DL (0.1-1.0); BLOOD UREA NITROGEN 28 MG/DL (7-18); CALCIUM 8.3 MG/DL (8.5-10.1); CHLORIDE 94 MMOL/L (99-107); CREATININE 1.22 MG/DL (0.40-0.90); GLUCOSE 121 MG/DL (70-104); POTASSIUM 3.7 MMOL/L (3.5-5.1); SODIUM 131 MMOL/L (135-145); TOTAL CARBON DIOXIDE 31.8 MMOL/L (24-32); TOTAL PROTEIN 7.6 G/DL (6.4-8.2); eGFR 45 ML/MIN
[2021-01-20 11:00] VITALS: BP 120/82
[2021-01-20 15:00] VITALS: BP 140/86
[2021-01-20] MEDS: ipratropium/albuterol 3ml nebule NEB PRN (15:01)
[2021-01-20 18:00] VITALS: BP 127/79
--- NOTE | 2021-01-20 18:21 | NUR ---
Problems reprioritized. Patient report given, questions answered & plan of care reviewed with Dilcia GRIFFIN.
[2021-01-20 22:00] VITALS: BP 101/55
[2021-01-21] MEDS: heparin, porcine 5000 units/ml vial SQ SCH ×3 (00:10→15:33)
[2021-01-21] MEDS: ceFAZolin/D5W- 1GM premix 50 ML IV SCH ×3 (00:11→15:33)
[2021-01-21 02:00] VITALS: BP 120/74
[2021-01-21] MEDS: oxyCODONE/APAP 5-325mg tablet PO PRN ×3 (02:05→17:50)
[2021-01-21] MEDS: levoTHYROXINE 25mcg tablet PO SCH (05:22)
[2021-01-21 06:00] VITALS: BP 127/80
--- NOTE | 2021-01-21 06:52 | NUR ---
Patient in room PCU 3016. I have received report from Lili GRIFFIN and had the opportunity to ask questions and assume patient care.
--- NOTE | 2021-01-21 06:53 | NUR ---
Problems reprioritized. Patient report given, questions answered & plan of care reviewed with Lynda GRIFFIN .
[2021-01-21] MEDS: K and/or MAG REPLACEMENT MC SCH ×2 (08:00→20:00)
[2021-01-21] MEDS: docusate sod 100mg capsule PO SCH ×2 (08:00→20:00)
[2021-01-21] MEDS: nicotine 14mg patch - 24hr TD SCH (08:06)
[2021-01-21] MEDS: lactobacillus rhamnosus 10,000 MMU CELLS/CAPSULE PO SCH ×2 (08:07→21:08)
[2021-01-21] MEDS: pantoprazole 40mg Tablet.DR PO SCH (08:07)
[2021-01-21] MEDS: furosemide 40mg/4ml inj IV SCH ×2 (08:08→21:03)
[2021-01-21] MEDS: carVEDilol 12.5mg tablet PO SCH ×2 (08:08→20:00)
[2021-01-21] MEDS: lisinopril 5mg tablet PO SCH ×2 (08:09→21:08)
[2021-01-21] MEDS: linezolid 600mg tablet PO SCH ×2 (08:20→21:09)
[2021-01-21] MEDS: metolazone 2.5mg tablet PO SCH (08:20)
[2021-01-21] MEDS: mineral oil/petrolatum, white cream 113gm jar TP SCH ×2 (08:22→21:09)
[2021-01-21 11:00] VITALS: BP 107/59
[2021-01-21 15:00] VITALS: BP 118/73
[2021-01-21 18:00] VITALS: BP 128/86
--- NOTE | 2021-01-21 18:17 | NUR ---
Problems reprioritized. Patient report given, questions answered & plan of care reviewed with Christi GRIFFIN.
[2021-01-21 22:00] VITALS: BP 126/68
[2021-01-22] VITALS (7 sets, daily range): BP systolic 113–137; BP diastolic 63–88
[2021-01-22] MEDS: ceFAZolin/D5W- 1GM premix 50 ML IV SCH ×3 (00:01→15:13)
[2021-01-22] MEDS: heparin, porcine 5000 units/ml vial SQ SCH ×3 (00:25→15:12)
[2021-01-22] MEDS: oxyCODONE/APAP 5-325mg tablet PO PRN (04:21)
--- NOTE | 2021-01-22 06:13 | NUR ---
Patient in room PCU 3016. I have received report from Lavern GRIFFIN and had the opportunity to ask questions and assume patient care.
--- NOTE | 2021-01-22 06:43 | NUR ---
Problems reprioritized. Patient report given, questions answered & plan of care reviewed with Lavern GRIFFIN.
[2021-01-22] MEDS: levoTHYROXINE 25mcg tablet PO SCH (06:58)
[2021-01-22] MEDS: furosemide 40mg/4ml inj IV SCH ×2 (07:06→20:10)
[2021-01-22] MEDS: lisinopril 5mg tablet PO SCH ×2 (07:07→20:12)
[2021-01-22] MEDS: carVEDilol 12.5mg tablet PO SCH ×2 (07:08→20:10)
[2021-01-22] MEDS: pantoprazole 40mg Tablet.DR PO SCH (07:08)
[2021-01-22] MEDS: lactobacillus rhamnosus 10,000 MMU CELLS/CAPSULE PO SCH ×2 (07:08→20:20)
[2021-01-22] MEDS: nicotine 14mg patch - 24hr TD SCH (07:08)
[2021-01-22] MEDS: docusate sod 100mg capsule PO SCH ×2 (08:00→20:00)
[2021-01-22] MEDS: K and/or MAG REPLACEMENT MC SCH ×2 (08:00→20:00)
[2021-01-22] MEDS: mineral oil/petrolatum, white cream 113gm jar TP SCH ×2 (08:03→20:20)
[2021-01-22] MEDS: linezolid 600mg tablet PO SCH (09:43)
[2021-01-22] MEDS: metolazone 2.5mg tablet PO SCH (09:43)
[2021-01-22] MEDS: ipratropium/albuterol 3ml nebule NEB PRN (10:45)
--- NOTE | 2021-01-22 11:50 | NUR ---
Student documentation: I have reviewed and agree with all interventions, assessments performed and documented by Christi Chino.
--- NOTE | 2021-01-22 15:01 | NUR ---
F/u 01/22: Pt PO ~100% avg heart healthy diet meeting needs. [facility] 01/21 receiving routine colace. No nutrition intervention at this time. Will continue to monitor. Recs: 1. Continue Heart Healthy diet 2. Bowel care per rx 3. Scaled wt this admit, weekly wt thereafter Addendum: 01/22/21 at [address] Amended: Links added.
[2021-01-22] MEDS: acetaminophen 325mg tablet PO PRN (15:12)
--- NOTE | 2021-01-22 16:31 | NUR ---
Dietary TC: Pt reports able to eat well but edentulous requesting chopped meats w/ meals. Addendum: 01/22/21 at [address] Amended: Links added.
[2021-01-23] MEDS: heparin, porcine 5000 units/ml vial SQ SCH ×3 (00:39→19:36)
[2021-01-23] MEDS: ceFAZolin/D5W- 1GM premix 50 ML IV SCH ×3 (00:39→19:36)
[2021-01-23 02:00] VITALS: BP 100/68
[2021-01-23] MEDS: acetaminophen 325mg tablet PO PRN ×2 (04:03→11:38)
[2021-01-23] MEDS: levoTHYROXINE 25mcg tablet PO SCH (05:45)
--- NOTE | 2021-01-23 05:45 | NUR ---
[place] documentation: I have reviewed and agree with all interventions, assessments performed and documented by GABY Barraza. [place] Medication Administration: For this medication-pass time frame, all medication were reviewed, dispensed, administered and documented per hospital policy by GABY Barraza.
[2021-01-23 06:00] VITALS: BP 100/68
--- NOTE | 2021-01-23 06:14 | NUR ---
Problems reprioritized. Patient report given, questions answered & plan of care reviewed with Lavern GRIFFIN.
[2021-01-23] MEDS: carVEDilol 12.5mg tablet PO SCH (07:12)
[2021-01-23] MEDS: pantoprazole 40mg Tablet.DR PO SCH (07:12)
[2021-01-23] MEDS: lactobacillus rhamnosus 10,000 MMU CELLS/CAPSULE PO SCH (07:12)
[2021-01-23] MEDS: lisinopril 5mg tablet PO SCH (07:13)
[2021-01-23] MEDS: nicotine 14mg patch - 24hr TD SCH (07:13)
[2021-01-23] MEDS: furosemide 40mg/4ml inj IV SCH (07:13)
[2021-01-23] MEDS: docusate sod 100mg capsule PO SCH (07:15)
[2021-01-23] MEDS: mineral oil/petrolatum, white cream 113gm jar TP SCH (07:27)
[2021-01-23] MEDS: metolazone 2.5mg tablet PO SCH (07:29)
[2021-01-23] MEDS: K and/or MAG REPLACEMENT MC SCH (08:00)
[2021-01-23 11:00] VITALS: BP 98/61
[2021-01-23 12:32] LABS: BASOPHILS # (AUTO) 0.1 X10'3 (0-0.2); BASOPHILS % (AUTO) 1.1 % (0-1); EOSINOPHILS # (AUTO) 0.1 X10'3 (0-0.9); EOSINOPHILS % (AUTO) 1.3 % (0-6); HEMATOCRIT 40.2 % (35.0-45.0); LYMPHOCYTES # (AUTO) 0.9 X10'3 (1.1-4.8); LYMPHOCYTES % (AUTO) 13.7 % (21-51); MEAN CORPUSCULAR HEMOGLOBIN 24.1 PG (27.0-31.0); MEAN CORPUSCULAR HGB CONC 32.3 g/dL (33.0-36.5); MEAN CORPUSCULAR VOLUME 74.6 FL (78-98); MONOCYTES # (AUTO) 0.5 X10'3 (0-0.9); MONOCYTES % (AUTO) 8.3 % (2-12); NEUTROPHILS % (AUTO) 75.6 % (42-75); PLATELET COUNT 503 X10'3 (140-440); RED BLOOD COUNT 5.39 X10'6 (4.20-5.60); RED CELL DISTRIBUTION WIDTH 19.8 % (11.5-14.5); WHITE BLOOD COUNT 6.6 X10'3 (4.5-11.0)
[2021-01-23 12:46] LABS: ALANINE AMINOTRANSFERASE 18 U/L (12-78); ALBUMIN 2.7 G/DL (3.4-5.0); ALBUMIN/GLOBULIN RATIO 0.4 (1.1-1.5); ALKALINE PHOSPHATASE 270 IU/L (46-116); ANION GAP 9 (8-16); ASPARTATE AMINO TRANSFERASE 39 U/L (10-37); BILIRUBIN,TOTAL 0.8 MG/DL (0.1-1.0); BLOOD UREA NITROGEN 41 MG/DL (7-18); BUN/CREATININE RATIO 35.7 (6.6-38.0); CALCIUM 8.5 MG/DL (8.5-10.1); CHLORIDE 90 MMOL/L (99-107); CREATININE 1.15 MG/DL (0.40-0.90); GLUCOSE 79 MG/DL (70-104); POTASSIUM 3.8 MMOL/L (3.5-5.1); SODIUM 131 MMOL/L (135-145); TOTAL CARBON DIOXIDE 32.2 MMOL/L (24-32); TOTAL PROTEIN 9.2 G/DL (6.4-8.2); eGFR 48 ML/MIN
[2021-01-23] MEDS ORDERED: CEPH250T PO (13:34)
[2021-01-23 15:00] VITALS: BP 111/54
--- NOTE | 2021-01-23 15:02 | NUR ---
DR Dennis Babcock was paged patient name tonya goldberg in PCU room 16B has a discharge order , new prescription is pending . should i wait till it finalized since i couldn't print the discharge paper.KENTRELL [id number] GABY
[2021-01-23] MEDS ORDERED: CEPH500C81 PO ×2 (15:18→22:43)
--- NOTE | 2021-01-23 19:58 | NUR ---
3016B JULIO IS HERE IV ACCESS DISCONTIUED INTACT ASSISTED TO WC ALL PT BELONGINGS SENT WITH PATIENT REMONDED TO P/U FATMATA Addendum: 01/23/21 at 2000 by Talia Ivy RN REMINDED TO P/U PERSONAL BELONGINGS
== END 2021-01-23 20:00 | disposition home health service (06) | DRG 720 ==
LOC: ER 14:22 → ED HOLD 16:48 → SUR 3N 20:05 → PCU 3S 01-16 13:55
PROVIDERS: ADMIT Family Medicine; ATTEND Family Medicine
PROC: 3E02340 Introduction of Influenza Vaccine into Muscle, Percutaneous Approach (ICD-10-PCS; principal; 2021-01-15)
PROC: 3E0234Z Introduction of Serum, Toxoid and Vaccine into Muscle, Percutaneous Approach (ICD-10-PCS; 2021-01-15)
PROC: BQ2R1ZZ Computerized Tomography (CT Scan) of Right Lower Extremity using Low Osmolar Contrast (ICD-10-PCS; 2021-01-16)
DX: A41.9 Sepsis, unspecified organism (principal); J96.00 Acute respiratory failure, unspecified whether with hypoxia or hypercapnia; I50.23 Acute on chronic systolic (congestive) heart failure; N17.9 Acute kidney failure, unspecified; E87.1 Hypo-osmolality and hyponatremia; E03.9 Hypothyroidism, unspecified; I44.7 Left bundle-branch block, unspecified; R51.9 Headache, unspecified; E87.6 Hypokalemia; I42.0 Dilated cardiomyopathy; F17.210 Nicotine dependence, cigarettes, uncomplicated; L97.219 Non-pressure chronic ulcer of right calf with unspecified severity; K21.9 Gastro-esophageal reflux disease without esophagitis; R26.2 Difficulty in walking, not elsewhere classified; L03.115 Cellulitis of right lower limb; Y92.230 Patient room in hospital as the place of occurrence of the external cause; L03.116 Cellulitis of left lower limb; T50.2X5A Adverse effect of carbonic-anhydrase inhibitors, benzothiadiazides and other diuretics, initial encounter; Z59.00 Homelessness unspecified; Z71.6 Tobacco abuse counseling; Z79.899 Other long term (current) drug therapy; Z80.3 Family history of malignant neoplasm of breast; Z23 Encounter for immunization
CPT/HCPCS: 36415; 71045; 72193; 73701; 80053; 80202; 81001; 81025; 83605; 83735; 83880; 84145; 84443; 85007; 85008; 85025; 87040; 87081; 93005; 93306; 93971; 94640; 94760; 96365; 96366; 96368; 96375; 97110; 97116; 97162; 97530; 99285; G0378; J0690; J0696; J1644; J1940; J2270; J2405; J2543; J3370; J7030; Q9967

== ENCOUNTER 2021-01-23 21:47 | Emergency (ER) | payer MEDICAID ==
[~2021-01-23] VITALS: Ht 170.2 cm; Wt 47.7 kg
[~2021-01-23 21:47] MED LIST: CARV12.545 PO; CEPH250T PO; CEPH500C81 PO; FURO20TA4 PO; LEVO50TA8 PO; LISI-790 PO; OMEP-50 PO; POTA10TA PO
[2021-01-23 22:16] VITALS: BP 114/83
[2021-01-23] MEDS ORDERED: CEPH500C81 PO (22:43)
== END 2021-01-24 02:23 | disposition home or self-care (01) ==
LOC: ER 21:47
DX: L03.115 Cellulitis of right lower limb (principal); Z76.0 Encounter for issue of repeat prescription
CPT/HCPCS: 99281

== ENCOUNTER 2021-01-24 03:34 | Emergency (ER) | payer MEDICAID ==
[~2021-01-24] VITALS: Ht 170.2 cm; Wt 45.5 kg
[~2021-01-24 03:34] MED LIST changes: -CEPH250T PO; -FURO20TA4 PO; -POTA10TA PO
[2021-01-24 03:36] VITALS: BP 147/97
[2021-01-24] MEDS ORDERED: bacitracin 15gm ointment TP ONE (04:00)
[2021-01-24] MEDS ORDERED: LIDOcaine 1% W/epiNEPHrine 1:200,000 10ml vial IJ ONE (04:00)
[2021-01-24] MEDS ORDERED: LIDOcaine 1% w/epiNEPHrine 1:200,000 30ml vial IJ ONE (04:10)
== END 2021-01-24 05:19 | disposition home or self-care (01) ==
LOC: ER 03:34
DX: S01.81XA Laceration without foreign body of other part of head, initial encounter (principal); S01.511A Laceration without foreign body of lip, initial encounter; S60.511A Abrasion of right hand, initial encounter; S80.212A Abrasion, left knee, initial encounter; S80.211A Abrasion, right knee, initial encounter; I50.9 Heart failure, unspecified; Z87.01 Personal history of pneumonia (recurrent); Z98.890 Other specified postprocedural states; Z79.2 Long term (current) use of antibiotics; Z79.899 Other long term (current) drug therapy; W18.30XA Fall on same level, unspecified, initial encounter; Y93.89 Activity, other specified; Y92.89 Other specified places as the place of occurrence of the external cause; Y99.8 Other external cause status
CPT/HCPCS: 12011; 99284